=== PATIENT | male | born 1995 ===

== ENCOUNTER 2024-11-17 21:10 | Emergency (ER) | payer SELFPAY ==
--- NOTE | ~2024-11-17 | CT_ITS ---
CLINICAL HISTORY: injury pain CT cervical spine without contrast Comparison: None Findings: No acute fracture or dislocation is demonstrated. Posterior alignment is normal throughout. No significant degenerative change noted. No radiopaque foreign bodies noted. Impression: No acute processes This document has been electronically signed by: Dmitriy Faye MD on 11/18/2024 00:03:58
[2024-11-17 21:57] VITALS: BP 137/49; PULSE 80; RESP 18; TEMP 36.7; O2SAT 97; BMI 31.0
--- OUTSIDE RECORDS SUMMARY | 2024-11-17 23:00 | XMS_ITS | Clinical Summary ---
Author Organization [facility] it Address [address] [place] [address] Care Team Providers Care Field Marketing Director Name Role Phone Enrique Mancera MD Primary Care Provider [phone] Allergies No known active allergies Medications albuterol HFA (PROAIR HFA ; PROVENTIL HFA ; VENTOLIN HFA) 90 mcg/actuation inhaler Inhale 2 Puffs into the lungs every 4 hours as needed for Cough or Wheezing. Active fluticasone propion-salmete roL (ADVAIR HFA) 115-21 mcg/actuation inhaler Inhale 2 Puffs into the lungs 2 times daily. Active hydrocortisone 1 % topical cream Apply 1 Applicator topically 2 times daily. X 2 weeks then as needed for flares Active loratadine (CLARITIN) 10 mg tablet Take 1 Tablet by mouth daily as needed for Allergies. Active mometasone (ELOCON) 0.1 % cream Apply 1 Film topically daily. X 2 weeks, then as needed for flares Active Active Problems Problem Noted Date Diagnosed Date Elevated blood pressure reading 05/30/2022 History of drug abuse 05/30/2022 Overview (08/02/2024): On Suboxone previously. Moderate persistent asthma without complication 12/06/2021 Seasonal allergies 12/06/2021 Eczema 10/26/2017 Immunizations Name Administration Dates Next Due Influenza Quadravalent, MDCK , 0.5ml, preservative free (Flucelvax) 6mo and older 05/30/2022 Tdap Tetanus diptheria acell ular pertussis (Boostrix; Adacel) 7yo and older 12/06/2021 Surgical History Surgery Date Site/Laterality Comments TONSILLECTOMY PROCEDURE: HISTORICAL TONSILLECTOMY Medical History Medical History Date Comments Asthma DX:Asthma Seasonal allergies DX:Seasonal a llergies Family History Medical History Relation Name Comments Breast cancer Mother Diabetes Other Paternal aunt Relation Name Status Comments Mother Other Social History Tobacco Use Types Packs/Day Years Used Date Smoking Tobacco: Former Smokeless Tobacco: Never Alcohol Use Standard Drinks/Week Comments Not Currently 0 (1 standard drink = 0.6 oz pur e alcohol) Sex and Gender Information Value Date Recorded Sex Assigned at Not on file Legal Sex Male 4:30 PM EST Gender Identity Not on file Sexual Orientation Not on file Obstetrics History Last Filed Vital Signs Vital Sign Reading Time Taken Comments Blood Pressure 130/73 10/25/2022 2:14 PM EDT Pulse 92 10/25/2022 2:14 PM EDT Temperature - - Respiratory Rate - - Oxygen Saturation - - Inhaled Oxygen Concentration - - Weight 109 kg (241 lb) 10/25/2022 2:14 PM EDT Height 188 cm (6' 2 ) 10/25/2022 2:14 PM EDT Body Mass Index 30.94 10/25/2022 2:14 PM EDT Plan of Treatment Health Maintenance Due Date Last Done Comments Hepatitis B Vaccines (1 of 3 - 19+ 3-dose series) 2014 Pneumococcal Vaccine: Pediat rics (0 to 5 Years) and At-Risk Patients (6 to 64 Years) (1 of 2 - PCV) 2014 Depression Screening 07/13/2022 HIV Screening 07/13/2022 Hepatitis C Screening 07/13/2022 Social Influencers of Health Screening 07/13/2022 COVID-19 Vaccine (1 - 2023-2 5 season) 2024 Influenza Vaccine (#1) 2024 05/30/2022 Cholesterol Screening (Lipid Panel) 10/26/2027 10/25/2022 DTaP,Tdap,and Td Vaccines (2 - Td or Tdap) 12/07/2031 12/06/2021 HIB Vaccines Aged Out No longer eligi ble based on patient's age to complete this topic HPV Vaccines Aged Out No longer eligi ble based on patient's age to complete this topic Hepatitis A Vaccines Aged Out No long er eligible based on patient's age to complete this topic IPV Vaccines Aged Out No longer eligi ble based on patient's age to complete this topic MMR Vaccines Aged Out No longer eligi ble based on patient's age to complete this topic Meningococcal ACWY Vaccine Aged Out N o longer eligible based on patient's age to complete this topic Meningococcal B Vacine Aged Out No lo nger eligible based on patient's age to complete this topic RSV Immunization Patients Un terry 20 months Aged Out No longer eligible b ased on patient's age to complete this topic Varicella Vaccines Aged Out No longer eligible based on patient's age to complete this topic Procedures Procedure Name Priority Date/Time Associated Diagnosis Comments LIPID PANEL Routine 10/25/2022 from Last 3 Months or Most Recently Relevant to Health Maintenance Results * (ABNORMAL) Lipid panel (10/25/2022) LDL/HDL Ratio 10(A) 0 - 4 Triglycerides 94 0 - 150 mg/dL Cholesterol 248(A) 0 - 200 mg/dL HDL 26(A) >=40 mg/dL LDL Cholesterol 204(A) 0 - 100 mg/dL Blood Venous blood specimen / Unknown Historical Provider LAB BLOOD ORDERABLES Kae l Result from Last 3 Months or Most Recently Relevant to Health Maintenance Care Teams Field Marketing Director Relationship Specialty Start Date End Date Enrique Mancera MD [address] [place] [address] PCP - General Internal Medicine 11/02/21
--- OUTSIDE RECORDS SUMMARY | 2024-11-17 23:00 | XMS_ITS ---
Author Name [facility] Unknown History of Medication Use Medication Directions Dispensed Refills Start Date End Date Stat us Noris AllergyTakeN o date recordedNo form recordedNo frequency recordedNo route recordedNo set duration recordedNo set duration amount recordedactiveNo dosage strength recordedNo dosage strength units of measure recorded active erythromycinApply 1 Application (ophthalmic (eye)) 3 times per day for 5 [id number] times per dayophthalmic (eye)[id number] mg/gram(0.5 %) 10/23/2023 active Problems Problem Status Onset Date Problem Type Date of Resoluti on Source Acute sinusitis, unspecified active 2023-11-23 ProblemAct [facility] Other asthma active 2023-11-23 ProblemAct [facility] YSONE Hordeolum externum unspecified eye, unspecified eyelid active 2023-11-23 ProblemAct [facility] E Encounters Encounter Type Encounter Reason Primary Diagnosis Location Date Ambulatory [facility] 11/23/2023 Care Team Organization Name Specialty Phone Email Start Date End Da te [facility] Not Disclosed Primary Care 10/23/2023 [facility] Not Disclosed Primary Care 10/23/2023
--- NOTE | 2024-11-18 00:49 | ED_ITS ---
HPI - General Adult General Chief complaint: Neck Pain/Injury Stated complaint: neck injury Time Seen by Provider: 11/17/24 23:30 Source: patient Limitations: no limitations History of Present Illness ED Provider: Pilar Shah PA-C HPI narrative: 29-year-old male presents with neck pain x3 days. Patient states he was lifting weights, he has developed progressive pain and stiffness of the posterior neck. The pain radiates across upper back bilaterally. The pain does not radiate down either extremity. No weakness of upper extremities or paresthesia. No headache or visual changes. Patient has been using [id number] ibuprofen, applying heat and cold compresses, without relief from symptoms. Related Data Previous Rx's ?Medication ?Instructions ?Recorded ketorolac 10 mg tablet 10 mg PO Q6H PRN pain #20 tabs 11/18/24 methocarbamol 750 mg tablet 1,500 mg (2 x 750 mg) PO BID PRN 11/18/24 pain, moderate #20 tabs Allergies Allergy/AdvReac Type Severity Reaction Status Date / Time No Known Allergies Allergy Verified 11/17/24 21:59 Review of Systems Review of Systems: Yes all other systems are reviewed and are negative Constitutional: Constitutional: Denies fatigue, Denies fever(s) and Denies headache(s) Eyes: Eyes: Denies change in vision ENT: Denies dizziness, Denies headache(s) and Reports neck pain Cardiovascular: Cardiovascular: Denies chest pain and Denies dyspnea Respiratory: Respiratory: Denies dyspnea Musculoskeletal: Musculoskeletal: Reports back pain, Reports neck pain and Denies radiating pain into limb Neurologic: Denies dizziness and Denies headache(s) Endocrine: Endocrine: Denies fatigue [facility] Past Medical History Attestation statement: The following information was validated with the patient. Social History Social History Advance Directives: No Advance Directives Information Provided: Yes Do you have a plan to hurt others: No Plan Physical Exam ED Vital Signs: Vital Signs - 24 hr 11/17/24 21:57 Temperature 98.1 F Pulse Rate 80 Respiratory Rate 18 Blood Pressure 137/49 L Pulse Oximetry 97 Oxygen Delivery Method Room Air BMI result Body Mass Index 31.0 Const Other: Alert Orientation/consciousness: patient oriented x3 Neck Other: Limited range of motion, he can move the neck in all directions, however pain elicited with movement, he is moving slowly Resp Effort & Inspection: normal respiratory effort Cardio Other: Normal peripheral perfusion Skin Other: Warm dry no rash Neuro General: patient oriented x3, gait normal, no focal motor deficits and CN's II- XI intact bilaterally Extrem Other: Strength 5/5 bilateral upper extremities Psych Other: Cooperative Medications Administered Discontinued Medications Generic Name Dose Route Start Last Admin Trade Name Kings PRN Reason Stop Dose Admin Ketorolac Tromethamine 15 mg 11/18/24 00:59 11/18/24 01:05 Ketorolac Tromethamine 15 Mg/Ml Vial IM 11/18/24 01:00 15 mg ONCE ONE Administration Methocarbamol 1,500 mg 11/18/24 00:59 11/18/24 01:06 Methocarbamol 750 Mg Tablet PO 11/18/24 01:00 1,500 mg ONCE ONE Administration Medical Decision Making Medical Decision Making MDM Narrative: 29-year-old male presents with neck pain x3 days. Patient states he was lifting weights, he has developed progressive pain and stiffness of the posterior neck. The pain radiates across upper back bilaterally. The pain does not radiate down either extremity. No weakness of upper extremities or paresthesia. No headache or visual changes. Patient has been using [id number] ibuprofen, applying heat and cold compresses, without relief from symptoms. No chronic issues History: Per patient I have considered the following differential diagnoses: Compression fracture, cervical strain, cervical radiculopathy, VAD Plan: CT scan ordered from triage, there was no acute injury beyond musculoskeletal strain. He is also not having radicular symptoms. He is neurologically intact without visual changes to suggest VAD. We will treat with anti-inflammatory and a muscle relaxant. I have independently reviewed the following tests: CT cervical spine: Findings: No acute fracture or dislocation is demonstrated. Posterior alignment is normal throughout. No significant degenerative change noted. No radiopaque foreign bodies noted. Impression: No acute processes Discharge Plan Discharge Clinical Impression: Cervical strain Patient Disposition: Home, Self-Care Instructions: Cervical Strain (ED) Additional Instructions: The CT scan of your neck was normal, you have cervical strain. See home care instructions. Use the ketorolac as directed, this is an anti-inflammatory, take it with food. Use the methocarbamol as needed for further pain, this is a musc le relaxant. This medication will cause drowsiness do not drive or operate machinery while taking the medication. Follow up with primary care provider as needed. Prescriptions: New methocarbamol 750 mg tablet 1,500 mg PO BID PRN (Reason: pain, moderate) Qty: 20 0RF ketorolac 10 mg tablet 10 mg PO Q6H PRN (Reason: pain) Qty: 20 0RF Rx Instructions: maximum total duration of 5 days from all oral, intranasal, or parenteral formulations. The patient received an intramuscular dose of Toradol here in the emergency department. Print Language: Albanian
[2024-11-18] MEDS: Ketorolac Tromethamine 15 MG/ML VIAL IM (01:05)
[2024-11-18] MEDS: methocarbamoL 750 MG TABLET 1500 MG PO (01:06)
[2024-11-18 01:08] VITALS: BP 137/67; PULSE 76; RESP 20; TEMP 36.4; O2SAT 95
[2024-11-18 01:19] VITALS: BP 137/67; PULSE 76; RESP 20; TEMP 36.4; O2SAT 95
== END 2024-11-18 01:19 | disposition home or self-care (01) ==
PROVIDERS: Emergency Provider Emergency Medicine
DX: S16.1XXA Strain of muscle, fascia and tendon at neck level, initial encounter (principal); X50.0XXA Overexertion from strenuous movement or load, initial encounter; Y93.B3 Activity, free weights; Y92.9 Unspecified place or not applicable; Y99.9 Unspecified external cause status
CPT/HCPCS: 72125; 96372; 99283; 99284; J1885

== ENCOUNTER → 2024-11-17 23:29 | Outpatient (BNV) | payer SELFPAY | PROVIDERS: Emergency Provider Emergency Medicine; Visit Provider Radiology Diagnostic Radiology | DX: M54.2 Cervicalgia (principal) | CPT/HCPCS: 72125 ==